=== PATIENT | female | born 1995 | race Caucasian/White ===

== ENCOUNTER 2017-04-12 15:38 | Emergency (ER) | payer BC, OTHER ==
[2017-04-12 16:23] LABS: Appearance,Urine Cloudy (Clear); Bacteria,Urine Rare /hpf; Bilirubin,Urine Negative (Negative); Blood,Urine Trace (Negative); Color,Urine Light Yellow; Glucose,Urine (UA) 4+ (Negative); Hyaline Casts,Urine 1 /lpf (0-2); Ketones,Urine Negative (Negative); Leukocyte Esterase,Urine Large (Negative); Mucus,Urine Rare /hpf; Nitrite,Urine Positive (Negative); PH, Urine 5.5 (5.0-8.0); Protein,Urine Negative (Negative); RBC,Urine 5 /hpf (0-5); Specific Gravity,Urine 1.024 (1.001-1.035); Squamous Epithelial Cell,Urine 2 /hpf (0-4); Urobilinogen,Urine <2.0 mg/dL (<2.0); WBC,Urine 95 /hpf (0-5)
[2017-04-12] MEDS ORDERED: cefTRIAXone 1,000 MG VIAL (IM USE) IM STA (16:31)
--- NOTE | 2017-04-12 16:38 | ED ---
General Adult HPI - General Chief complaint: Urogenital Stated complaint: poss UTI Time Seen by Provider: 04/12/17 16:22 Source: patient, RN notes reviewed Mode of arrival: ambulatory Limitations: no limitations - History of Present Illness Initial comments: Patient's a 21-year-old female who presents emergency room today with a chief complaint of possible urinary tract infection. She states that she's had some symptoms of dysuria. She admits to burning with urination. She states the symptoms started yesterday and has increased today. She denies any other complaints or associated symptoms. Denies any vaginal bleeding or discharge. She is not worried about any STDs. Patient denies any recent fever, chills, shortness of breath, chest pain, back pain, abdominal pain, nausea or vomiting, numbness or tingling, headaches or visual changes, or any other complaints. - Related Data Home Medications Medication Instructions Recorded Confirmed Insulin Aspart [NovoLOG Flexpen] 30 units SQ AC-TID 04/12/17 04/12/17 Insulin Glargine,Hum.rec.anlog 50 unit SQ BID 04/12/17 04/12/17 [Basaglar Kwikpen U-100] Lisinopril [Zestril] 2.5 mg PO DAILY 04/12/17 04/12/17 busPIRone HCl [Buspar] 5 mg PO BID 04/12/17 04/12/17 Previous Rx's Medication Instructions Recorded Nitrofurantoin Monohyd/M-Cryst 100 mg PO Q12HR #14 cap 04/12/17 [Macrobid] Phenazopyridine [Pyridium] 100 mg PO TID 3 Days day 04/12/17 Allergies Allergy/AdvReac Type Severity Reaction Status Date / Time fluoxetine [From Prozac] AdvReac Suicidal Verified 04/12/17 16:19 Thoughts Review of Systems ROS Statement: Those systems with pertinent positive or pertinent negative responses have been documented in the HPI. ROS Other: All systems not noted in ROS Statement are negative. Past Medical History Past Medical History: Diabetes Mellitus, Hearing Disorder / Deafness, Hypertension History of Any Multi-Drug Resistant Organisms: None Reported Past Surgical History: Ear Surgery Past Psychological History: Bipolar, Depression Smoking Status: Current every day smoker Past Alcohol Use History: None Reported Past Drug Use History: None Reported General Exam - General Exam Comments Initial Comments: General: The patient is awake and alert, in no distress, and does not appear acutely ill. Eye: Pupils are equal, round and reactive to light, extra-ocular movements are intact. No nystagmus. There is normal conjunctiva bilaterally. No signs of icterus. Ears, nose, mouth and throat: There are moist mucous membranes and no oral lesions. Neck: The neck is supple, there is no tenderness or JVD. Cardiovascular: There is a regular rate and rhythm. No murmur, rub or gallop is appreciated. Respiratory: Lungs are clear to auscultation, respirations are non-labored, breath sounds are equal. No wheezes, stridor, rales, or rhonchi. Gastrointestinal: Soft, non-distended, non-tender abdomen without masses or organomegaly noted. There is no rebound or guarding present. No CVA tenderness. Musculoskeletal: Normal ROM, no tenderness. Strength 5/5. Sensation intact. Pulses equal bilaterally 2+. Neurological: A&O x 3. CN II-XII intact, There are no obvious motor or sensory deficits. Coordination appears grossly intact. Speech is normal. Skin: Skin is warm and dry and no rashes or lesions are noted. Psychiatric: Cooperative, appropriate mood & affect, normal judgment. Limitations: no limitations Course Vital Signs 04/12/17 15:45 Temperature 98.2 F Pulse Rate 113 H Respiratory 16 Rate Blood Pressure 130/95 O2 Sat by Pulse 95 Oximetry Medical Decision Making - Medical Decision Making 21-year-old female presenting for urinary tract infection symptoms. Distant dysuria. Patient's vital stable. Patient no tenderness on exam. No fever here in the emergency room. Given shot of Rocephin. Will be discharged home on antibiotics and Pyridium for her symptoms. Advised follow-up the family doctor return if symptoms increase or worsen. - Lab Data Lab Results 04/12/17 04/12/17 Range/Units 15:40 15:40 Urine Color Light Yellow Urine Appearance Cloudy H (Clear) Urine pH 5.5 (5.0-8.0) Ur Specific [place] 1.024 (1.001-1.035) Urine Protein Negative (Negative) Urine Glucose (UA) 4+ H (Negative) Urine Ketones Negative (Negative) Urine Blood Trace H (Negative) Urine Nitrite Positive H (Negative) Urine Bilirubin Negative (Negative) Urine Urobilinogen <2.0 (<2.0) mg/dL Ur Leukocyte Esterase Large H (Negative) Urine RBC 5 (0-5) /hpf Urine WBC 95 H (0-5) /hpf Urine WBC Clumps Few H (None) /hpf Ur Squamous Epith Cells 2 (0-4) /hpf Urine Bacteria Rare H (None) /hpf Hyaline Casts 1 (0-2) /lpf Urine Mucus Rare H (None) /hpf Urine HCG, Qual Not Detected (Not Detectd) Disposition Clinical Impression: UTI (urinary tract infection) Disposition: HOME SELF-CARE Condition: Good Instructions: Urinary Tract Infection in Women (ED) Additional Instructions: Please use medication as discussed. Please follow-up with family doctor in the next 2 days of symptoms have not improved. Please return to emergency room if the symptoms increase or worsen or for any other concerns. Prescriptions: Nitrofurantoin Monohyd/M-Cryst [Macrobid] 100 mg PO Q12HR #14 cap Phenazopyridine [Pyridium] 100 mg PO TID 3 Days day Referrals: Angeles Aldana MD [Primary Care Provider] - 1-2 days Time of Disposition: 16:37
[2017-04-12 16:49] VITALS: BP 126/86; PULSE 101; RESP 18; TEMP 98.1
== END 2017-04-12 17:00 | disposition home or self-care (01) ==
LOC: EC 15:38
DX: N39.0 Urinary tract infection, site not specified (principal); E11.9 Type 2 diabetes mellitus without complications; I10 Essential (primary) hypertension; F17.200 Nicotine dependence, unspecified, uncomplicated; Z88.8 Allergy status to other drugs, medicaments and biological substances; Z79.4 Long term (current) use of insulin; Z79.899 Other long term (current) drug therapy
CPT/HCPCS: 99283; 96372; 81001; 81025; 87086; 87077; 87186; J0696

== ENCOUNTER 2021-07-22 07:48 | Observation (INO) | payer OTHER ==
[2021-07-22] MEDS ORDERED: ONDANSETRON 4 MG/2 ML VIAL IVP STA (08:22)
[2021-07-22] MEDS ORDERED: SODIUM CHLORIDE 0.9% 500 ML 500 ML IV ONE (08:22)
[2021-07-22] MEDS ORDERED: SODIUM CHLORIDE 0.9% 1,000 ML IV ONE (08:22)
--- NOTE | 2021-07-22 08:31 | ED ---
General Adult HPI - General Chief complaint: Recheck/Abnormal Lab/Rx Stated complaint: High Blood Sugar Time Seen by Provider: 07/22/21 08:00 Source: patient, RN notes reviewed, old records reviewed Mode of arrival: ambulatory Limitations: no limitations - History of Present Illness Initial comments: This 26-year-old female presents emergency Department stating her sugar was high yesterday and today patient states she didn't take any insulin today but she did drink a lot of water. Patient states she's been vomiting since yesterday. Patient denies any fever chills per patient denies any diarrhea. Patient states she does have some abdominal cramping occasionally. Patient denies chest pain difficulty breathing shortness of breath. Patient denies any palpitations. Patient denies any headache patient denies numbness weakness. - Related Data Home Medications Medication Instructions Recorded Confirmed Insulin Aspart Protam & Aspart See Protocol SQ ACHS 07/22/21 07/22/21 [NovoLOG MIX 70-30 Flexpen] Mirtazapine [Remeron] 15 mg PO HS 07/22/21 07/22/21 lamoTRIgine [LaMICtal] See Taper PO DIRECTED 07/22/21 07/22/21 Allergies Allergy/AdvReac Type Severity Reaction Status Date / Time sulfamethoxazole Allergy Rash/Hives Verified 07/22/21 08:31 [From Bactrim] trimethoprim [From Bactrim] Allergy Rash/Hives Verified 07/22/21 08:31 duloxetine [From Cymbalta] AdvReac Hallucinati Verified 07/22/21 08:31 ons fluoxetine [From Prozac] AdvReac Suicidal Verified 07/22/21 08:31 Thoughts sertraline [From Zoloft] AdvReac Hallucinati Verified 07/22/21 08:31 ons Review of Systems ROS Statement: Those systems with pertinent positive or pertinent negative responses have been documented in the HPI. ROS Other: All systems not noted in ROS Statement are negative. Past Medical History Past Medical History: Diabetes Mellitus, Hearing Disorder / Deafness, Hypertension History of Any Multi-Drug Resistant Organisms: None Reported Past Surgical History: Ear Surgery Past Psychological History: Anxiety, Bipolar, Depression Smoking Status: Current every day smoker Past Alcohol Use History: None Reported Past Drug Use History: Marijuana General Exam - General Exam Comments Initial Comments: GENERAL: Patient is well-developed and well-nourished. Patient is nontoxic and well- hydrated and is in mild distress. ENT: Neck is soft and supple. No significant lymphadenopathy is noted. Oropharynx is clear. Dry mucous membranes. Neck has full range of motion without eliciting any pain. EYES: The sclera were anicteric and conjunctiva were pink and moist. Extraocular movements were intact and pupils were equal round and reactive to light. Eyelids were unremarkable. PULMONARY: Unlabored respirations. Good breath sounds bilaterally. No audible rales rhonchi or wheezing was noted. CARDIOVASCULAR: There is a regular rate and rhythm without any murmurs gallops or rubs. ABDOMEN: Soft and nontender with normal bowel sounds. SKIN: Skin is clear with no lesions or rashes and otherwise unremarkable. NEUROLOGIC: Patient is alert and oriented x3. Cranial nerves II through XII are grossly intact. Motor and sensory are also intact. Normal speech, volume and content. Symmetrical smile. MUSCULOSKELETAL: Normal extremities with adequate strength and full range of motion. No lower extremity swelling or edema. No calf tenderness. LYMPHATICS: No significant lymphadenopathy is noted PSYCHIATRIC: Normal psychiatric evaluation. Limitations: no limitations Course Vital Signs 07/22/21 07:57 Temperature 98.1 F Pulse Rate 98 Respiratory 18 Rate Blood Pressure 158/106 O2 Sat by Pulse 97 Oximetry Medical Decision Making - Medical Decision Making EKG shows sinus rhythm 82 bpm [place] interval 164 QRS is 170 QT interval 41 QTC is 439. Patient's EKG shows no ST segment elevation or depression. Patient was started on insulin because her sugar was 678. I put her on insulin drip and gave her a bolus. I spoke with sounds physician's agreed to admit the patient admitted the patient wrote admitting orders. - Lab Data Result diagrams: 07/22/21 08:29 07/22/21 08:29 Lab Results 07/22/21 07/22/21 07/22/21 Range/Units 08:29 08:29 09:41 WBC 7.4 (3.8-10.6) k/uL RBC 4.84 (3.80-5.40) m/uL Hgb 14.1 (11.4-16.0) gm/dL Hct 44.6 (34.0-46.0) % MCV 92.1 (80.0-100.0) fL MCH 29.2 (25.0-35.0) pg MCHC 31.7 (31.0-37.0) g/dL RDW 13.2 (11.5-15.5) % Plt Count 296 (150-450) k/uL MPV 7.4 Neutrophils % 75 % Lymphocytes % 19 % Monocytes % 3 % Eosinophils % 1 % Basophils % 0 % Neutrophils # 5.5 (1.3-7.7) k/uL Lymphocytes # 1.4 (1.0-4.8) k/uL Monocytes # 0.2 (0-1.0) k/uL Eosinophils # 0.1 (0-0.7) k/uL Basophils # 0.0 (0-0.2) k/uL Sodium 130 L (137-145) mmol/L Potassium 5.0 (3.5-5.1) mmol/L Chloride 99 (98-107) mmol/L Carbon Dioxide 20 L (22-30) mmol/L Anion Gap 11 mmol/L BUN 20 H (7-17) mg/dL Creatinine 0.46 L (0.52-1.04) mg/dL Est GFR (CKD-EPI)AfAm >90 (>60 ml/min/1.73 sqM) Est GFR (CKD-EPI)NonAf >90 (>60 ml/min/1.73 sqM) Glucose 678 H* (74-99) mg/dL Calcium 8.4 (8.4-10.2) mg/dL Total Bilirubin 0.6 (0.2-1.3) mg/dL AST 37 H (14-36) U/L ALT 31 (4-34) U/L Alkaline Phosphatase 62 (38-126) U/L Total Protein 6.9 (6.3-8.2) g/dL Albumin 3.7 (3.5-5.0) g/dL Urine Color Light Yellow Urine Appearance Clear (Clear) Urine pH 6.5 (5.0-8.0) Ur Specific [place] 1.035 (1.001-1.035) Urine Protein Negative (Negative) Urine Glucose (UA) 4+ H (Negative) Urine Ketones Negative (Negative) Urine Blood Negative (Negative) Urine Nitrite Negative (Negative) Urine Bilirubin Negative (Negative) Urine Urobilinogen <2.0 (<2.0) mg/dL Ur Leukocyte Esterase Negative (Negative) Acetone, Qual Negative (Negative) Disposition Clinical Impression: Hyperglycemia Disposition: ADMITTED IP TO THIS HOSP Referrals: Michael Mejia MD [Primary Care Provider] - 1-2 days Time of Disposition: 10:15
[2021-07-22 08:51] LABS: Basophils % (A) 0 %; Eosinophils # (A) 0.1 k/uL (0-0.7); Eosinophils % (A) 1 %; HCT 44.6 % (34.0-46.0); HGB 14.1 gm/dL (11.4-16.0); Lymphocytes # (A) 1.4 k/uL (1.0-4.8); Lymphocytes % (A) 19 %; MCH 29.2 pg (25.0-35.0); MCHC 31.7 g/dL (31.0-37.0); MCV 92.1 fL (80.0-100.0); Mean Platelet Volume 7.4; Monocytes # (A) 0.2 k/uL (0-1.0); Monocytes % (A) 3 %; Neutrophils # (A) 5.5 k/uL (1.3-7.7); Neutrophils % (A) 75 %; Platelet Count 296 k/uL (150-450); RBC 4.84 m/uL (3.80-5.40); RDW 13.2 % (11.5-15.5); WBC 7.4 k/uL (3.8-10.6)
[2021-07-22 09:01] LABS: ALT 31 U/L (4-34); African American GFR (CKD) >90 (>60 ml/min/1.73 sqM); Albumin 3.7 g/dL (3.5-5.0); Anion Gap 11 mmol/L; Blood Urea Nitrogen 20 mg/dL (7-17); Calcium 8.4 mg/dL (8.4-10.2); Carbon Dioxide 20 mmol/L (22-30); Chloride 99 mmol/L (98-107); Non-African American GFR(CKD) >90 (>60 ml/min/1.73 sqM); Sodium 130 mmol/L (137-145); Total Bilirubin 0.6 mg/dL (0.2-1.3); Total Protein 6.9 g/dL (6.3-8.2)
[2021-07-22 09:17] LABS: Glucose 678 mg/dL (74-99)
[2021-07-22 09:18] LABS: AST 37 U/L (14-36); Alkaline Phosphatase 62 U/L (38-126)
[2021-07-22] MEDS ORDERED: INSULIN REGULAR BOLUS (FROM DRIP BAG) IV ONE (09:37)
[2021-07-22] MEDS ORDERED: INSULIN REGULAR 100 UNIT in SODIUM CHLORIDE 0.9% 100 ML IV SCH ×2 (09:45→13:30)
[2021-07-22] MEDS ORDERED: SODIUM CHLORIDE 0.9% 1,000 ML IV SCH (09:45)
[2021-07-22 10:07] LABS: Appearance,Urine Clear (Clear); Bilirubin,Urine Negative (Negative); Blood,Urine Negative (Negative); Color,Urine Light Yellow; Glucose,Urine (UA) 4+ (Negative); Ketones,Urine Negative (Negative); Leukocyte Esterase,Urine Negative (Negative); Nitrite,Urine Negative (Negative); PH, Urine 6.5 (5.0-8.0); Protein,Urine Negative (Negative); Specific Gravity,Urine 1.035 (1.001-1.035); Urobilinogen,Urine <2.0 mg/dL (<2.0)
[2021-07-22] MEDS ORDERED: ENALAPRILAT 1.25 MG/ML 1 ML VIAL IVP STA (11:43)
[2021-07-22 12:02] LABS: Glucose,Whole Blood 304 mg/dL (75-99)
[2021-07-22 13:18] LABS: Glucose,Whole Blood 166 mg/dL (75-99)
[2021-07-22] MEDS ORDERED: D5-0.45% NACL WITH KCL 20MEQ/L 1,000 ML IV SCH (13:30)
[2021-07-22 14:20] LABS: Glucose,Whole Blood 134 mg/dL (75-99)
[2021-07-22 16:05] VITALS: PULSE 80; TEMP 98
[2021-07-22 16:10] LABS: Glucose,Whole Blood 144 mg/dL (75-99)
--- NOTE | 2021-07-22 17:19 | P.HPIM ---
History of Present Illness H&P Date: 07/22/21 Chief Complaint: Vomiting This is a pleasant 26-year-old patient who follows with Dr. Michael Mejia. Patient was diagnosed with diabetes type 1 in 2012. Patient does use insulin 7030. Was previously on Lantus. Apparently for insurance reasons she was switched over. She has not been able to establish with public relations analyst because of an shortness. She also takes Remeron and Lamictal for depression PTSD and insomnia. She normally checks her blood sugar and gives her insulin accordingly. Yesterday. She is not not feeling well when she noticed her blood sugar to be 600. She did not of fluids. Not feeling well. No fever no chills. No urinary symptoms. This morning her Accu-Chek was 449. She started vomiting. Decided to come to the ER. Ketones were negative. Put on insulin drip. The supple patient actually had a chicken sandwich. Review of systems: GEN.: Tired EYES: None HEENT: None NECK: None RESPIRATORY: None CARDIOVASCULAR: None GASTROINTESTINAL: As above GENITOURINARY: None MUSCULOSKELETAL: None LYMPHATICS: None HEMATOLOGICAL: None PSYCHIATRY: None NEUROLOGICAL: None Past medical history to include: Insulin type I, hypertension, depression, PTSD, insomnia Social history: These with her roommate Samy. Works as a housekeeping at [employer]. Smokes half a pack a day. Does marijuana occasionally. No alcohol. Family history: Reviewed, noncontributory to presentation Physical examination: VITAL SIGNS: 98, 80, 18, 141/98, 99% room air GENERAL: BMI 32.4, laying in bed, awake, not in distress. EYES: Pupils equal. Conjunctiva normal. HEENT: External appearance of nose and ears normal, oral cavity grossly normal. NECK: JVD not raised; masses not palpable. HEART: First and second heart sounds are normal; no edema. LUNGS: Respiratory rate normal; clear to auscultation. ABDOMEN: Soft, nontender, liver spleen not palpable, no masses palpable. PSYCH: Alert and oriented x3; mood and affect normal. MUSCULOSKELETAL:No Clubbing/cyanosis;muscles-grossly intact NEUROLOGICAL: Cranial nerves grossly intact; no facial asymmetry, power and sensation grossly intact. LYMPHATICS: No lymph nodes palpable in the axilla and neck INVESTIGATIONS, reviewed in the clinical context: White count 7.4 hemoglobin 14.1 platelets 296 sodium 1:30 potassium 5. 20 creatinine 0.46 blood glucose 678 Serum acetone negative UA: Glucose 4+ EKG tracing personally reviewed by me-normal sinus rhythm Assessment and plan: -Diabetes mellitus type 1, uncontrolled with hyperglycemia. Negative blood ketones IV fluids. Insulin drip. -Obesity BMI 32.4 Weight loss measures -Chronic nicotine dependence, cigarette smoker Nicotine patch. -Nausea vomiting secondary to uncontrolled diabetes. -Depression and anxiety Lamictal Remeron -Chronic insomnia Remeron 15 mg daily at bedtime -Essential hypertension Zestril 5 mg daily at bedtime Insulin drip. IV fluids. Subcu Lovenox. Nicotine patch. Resume home medications. Diabetic diet as tolerated. Smoke cessation counseling: This was done with the patient. Nicotine patch is being given. More than 3 minutes was spent for this Past Medical History Past Medical History: Diabetes Mellitus, Hearing Disorder / Deafness, Hyperte nsion History of Any Multi-Drug Resistant Organisms: None Reported Past Surgical History: Ear Surgery Past Psychological History: Anxiety, Bipolar, Depression Smoking Status: Current every day smoker Past Alcohol Use History: None Reported Past Drug Use History: Marijuana Medications and Allergies Home Medications Medication Instructions Recorded Confirmed Type Insulin Aspart Protam & Aspart See Protocol SQ ACHS 07/22/21 07/22/21 History [NovoLOG MIX 70-30 Flexpen] Metoprolol Succinate (ER) [Toprol 50 mg PO HS 07/22/21 07/22/21 History Xl] Mirtazapine [Remeron] 15 mg PO HS 07/22/21 07/22/21 History lamoTRIgine [LaMICtal] See Taper PO DIRECTED 07/22/21 07/22/21 History lisinopriL [Zestril] 5 mg PO HS 07/22/21 07/22/21 History Allergies Allergy/AdvReac Type Severity Reaction Status Date / Time sulfamethoxazole Allergy Rash/Hives Verified 07/22/21 08:31 [From Bactrim] trimethoprim [From Bactrim] Allergy Rash/Hives Verified 07/22/21 08:31 duloxetine [From Cymbalta] AdvReac Hallucinati Verified 07/22/21 08:31 ons fluoxetine [From Prozac] AdvReac Suicidal Verified 07/22/21 08:31 Thoughts sertraline [From Zoloft] AdvReac Hallucinati Verified 07/22/21 08:31 ons Physical Exam Vitals: Vital Signs Temp Pulse Resp BP Pulse Ox 07/22/21 16:03 98.0 F 80 18 141/98 99 07/22/21 14:03 126/88 07/22/21 11:59 139/97 07/22/21 11:39 153/108 07/22/21 07:57 98.1 F 98 18 158/106 97 Intake and Output 07/22/21 07/22/21 07/22/21 06:59 14:59 22:59 Intake Total 2.417 1.817 Balance 2.417 1.817 Intake: Intake, IV Titration 2.417 1.817 Amount Insulin Regular 100 unit 2.417 1.817 In Sodium Chloride 0.9% 100 ml @ Titrate IV .Q0M [facility] Rx#:[id number] Other: Weight 80.286 kg Results CBC & Chem 7: 07/22/21 08:29 07/22/21 08:29 Labs: Abnormal Lab Results - Last 24 Hours (Table) 07/22/21 07/22/21 07/22/21 Range/Units 08:29 09:41 11:53 Sodium 130 L (137-145) mmol/L Carbon Dioxide 20 L (22-30) mmol/L BUN 20 H (7-17) mg/dL Creatinine 0.46 L (0.52-1.04) mg/dL Glucose 678 H* (74-99) mg/dL POC Glucose (mg/dL) 304 H (75-99) mg/dL AST 37 H (14-36) U/L Urine Glucose (UA) 4+ H (Negative) 07/22/21 07/22/21 07/22/21 Range/Units 13:15 14:16 16:06 Sodium (137-145) mmol/L Carbon Dioxide (22-30) mmol/L BUN (7-17) mg/dL Creatinine (0.52-1.04) mg/dL Glucose (74-99) mg/dL POC Glucose (mg/dL) 166 H 134 H 144 H (75-99) mg/dL AST (14-36) U/L Urine Glucose (UA) (Negative)
[2021-07-22] MEDS ORDERED: NALOXONE 0.4 MG/ML 1 ML VIAL IV PRN (17:20)
[2021-07-22] MEDS ORDERED: ACETAMINOPHEN TAB 325 MG TAB PO PRN (17:20)
[2021-07-22] MEDS ORDERED: LACTULOSE 20 GM/30 ML CUP PO PRN (17:20)
[2021-07-22] MEDS ORDERED: CALCIUM CARBONATE 500 MG CHEWABLE PO PRN (17:20)
[2021-07-22] MEDS ORDERED: LORazepam 0.5 MG TAB PO PRN (17:20)
[2021-07-22] MEDS ORDERED: INSULN ASP PRT/INSULIN ASPART 100 UNIT/ML 10 ML VIAL SQ SCH (17:30)
[2021-07-22] MEDS ORDERED: ENOXAPARIN 40 MG/0.4 ML SYRINGE SQ SCH (17:30)
[2021-07-22 18:50] LABS: Glucose,Whole Blood 351 mg/dL (75-99)
[2021-07-22 19:03] VITALS: BP 170/101; RESP 20
--- NOTE | 2021-07-22 20:50 | P.DS ---
Providers Date of admission: 07/22/21 10:38 Expected date of discharge: 07/22/21 Attending physician: Ken Ty Primary care physician: Michael [facility] Course: Chief Complaint: Vomiting This is a pleasant 26-year-old patient who follows with Dr. Michael Mejia. Patient was diagnosed with diabetes type 1 in 2012. Patient does use insulin 7030. Was previously on Lantus. Apparently for insurance reasons she was switched over. She has not been able to establish with instrument and controls technician because of an shortness. She also takes Remeron and Lamictal for depression PTSD and insomnia. She normally checks her blood sugar and gives her insulin accordingly. Yesterday. She is not not feeling well when she noticed her blood sugar to be 600. She did not of fluids. Not feeling well. No fever no chills. No urinary symptoms. This morning her Accu-Chek was 449. She started vomiting. Decided to come to the ER. Ketones were negative. Put on insulin drip. For lunch patient actually had a chicken sandwich. Data this evening patient received 20 units of Novolin 70/30 with supper. After that her sugar go to 320. Patient did not want to stay back. Leaving AMA. She was told to take Novolin 70/30 25 units with breakfast and supper and 12 units with lunch. Follow up with her PCP. Patient left AMA Past medical history to include: Insulin type I, hypertension, depression, PTSD, insomnia Social history: These with her roommate Samy. 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 Does marijuana occasionally. No alcohol. Family history: Reviewed, noncontributory to presentation Physical examination: VITAL SIGNS: 98, 80, 20, 140/98, 99% room air GENERAL: laying in bed, awake, not in distress. EYES: Pupils equal. Conjunctiva normal. HEENT: External appearance of nose and ears normal, oral cavity grossly normal. NECK: JVD not raised; masses not palpable. HEART: First and second heart sounds are normal; no edema. LUNGS: Respiratory rate normal; clear to auscultation. ABDOMEN: Soft, nontender, liver spleen not palpable, no masses palpable. PSYCH: Alert and oriented x3; mood and affect normal. MUSCULOSKELETAL:No Clubbing/cyanosis;muscles-grossly intact INVESTIGATIONS, reviewed in the clinical context: White count 7.4 hemoglobin 14.1 platelets 296 sodium 1:30 potassium 5. 20 creatinine 0.46 blood glucose 678 Serum acetone negative UA: Glucose 4+ EKG tracing personally reviewed by me-normal sinus rhythm Assessment and plan: -Diabetes mellitus type 1, uncontrolled with hyperglycemia. Negative blood ketones IV fluids. Insulin drip. Patient told to take Novolin 70/30 25 units twice a day and 12 units with lunch until follow-up with PCP -Obesity BMI 32.4 Weight loss measures -Chronic nicotine dependence, cigarette smoker Nicotine patch. -Nausea vomiting secondary to uncontrolled diabetes.: Resolved -Depression and anxiety Lamictal Remeron -Chronic insomnia Remeron 15 mg daily at bedtime -Essential hypertension Zestril 5 mg daily at bedtime Disposition: AMA Plan - Discharge Summary New Discharge Prescriptions: No Action lamoTRIgine [LaMICtal] See Taper PO DIRECTED Metoprolol Succinate (ER) [Toprol Xl] 50 mg PO HS Mirtazapine [Remeron] 15 mg PO HS Insulin Aspart Protam & Aspart [NovoLOG MIX 70-30 Flexpen] See Protocol SQ ACHS lisinopriL [Zestril] 5 mg PO HS Discharge Medication List Insulin Aspart Protam & Aspart [NovoLOG MIX 70-30 Flexpen] See Protocol SQ ACHS 07/22/21 [History] Metoprolol Succinate (ER) [Toprol Xl] 50 mg PO HS 07/22/21 [History] Mirtazapine [Remeron] 15 mg PO HS 07/22/21 [History] lamoTRIgine [LaMICtal] See Taper PO DIRECTED 07/22/21 [History] lisinopriL [Zestril] 5 mg PO HS 07/22/21 [History] Follow up Appointment(s)/Referral(s): Michael Mejia MD [Primary Care Provider] - 1-2 days Discharge Disposition: Left Against Medical Advice
[2021-07-22] MEDS ORDERED: METOPROLOL SUCCINATE (ER) 50 MG TAB.ER.24H PO SCH (21:00)
[2021-07-22] MEDS ORDERED: MIRTAZAPINE 15 MG TAB PO SCH (21:00)
[2021-07-22] MEDS ORDERED: lisinopriL 5 MG TAB PO SCH (21:00)
[2021-07-23] MEDS ORDERED: INSULN ASP PRT/INSULIN ASPART 100 UNIT/ML 10 ML VIAL SQ SCH (12:30)
== END 2021-07-22 19:05 | disposition left against medical advice (07) ==
LOC: EC 07:48 → INTOOBSV 10:38 → 6NMEDSUR 10:38 → OBSVTOIN 10:38 → 3SCARD 11:18 → UNDODISIN 19:05
PROVIDERS: ADMIT Hospitalist; ATTEND Hospitalist
DX: E10.65 Type 1 diabetes mellitus with hyperglycemia (principal); E66.9 Obesity, unspecified; Z68.32 Body mass index [BMI] 32.0-32.9, adult; F17.210 Nicotine dependence, cigarettes, uncomplicated; F31.9 Bipolar disorder, unspecified; F43.10 Post-traumatic stress disorder, unspecified; F41.9 Anxiety disorder, unspecified; I10 Essential (primary) hypertension; F51.04 Psychophysiologic insomnia; H91.90 Unspecified hearing loss, unspecified ear; Z79.4 Long term (current) use of insulin; Z79.899 Other long term (current) drug therapy; Z88.2 Allergy status to sulfonamides; Z88.8 Allergy status to other drugs, medicaments and biological substances; Z71.3 Dietary counseling and surveillance; Z71.6 Tobacco abuse counseling; Z53.29 Procedure and treatment not carried out because of patient's decision for other reasons
CPT/HCPCS: 96361; 96374; 99285; 36415; 93005; 80053; 82009; 85025; 81003; G0378; J2405

== ENCOUNTER 2021-11-21 08:22 | Emergency (ER) | payer OTHER ==
[2021-11-21 08:32] VITALS: TEMP 97.8
[2021-11-21] MEDS ORDERED: KETOROLAC 15 MG/ML 1 ML VIAL IVP STA (08:50)
--- NOTE | 2021-11-21 08:59 | ED ---
Chest Pain HPI - General Chief Complaint: Chest Pain Stated Complaint: chest & pelvic pain Time Seen by Provider: 11/21/21 08:32 Source: patient, RN notes reviewed Mode of arrival: ambulatory Limitations: no limitations - History of Present Illness Initial Comments: This is a 26-year-old female who presents to the emergency department with chest pain. States that for the last 2-3 months, she has had sporadic episodes, approximately 4 each week, where she gets sharp chest pain that radiates throughout her whole body. States that today, the chest pain caused her to fall onto the floor and she was unable to get up. States that this is the first time it has become this severe. States that she had difficulty breathing this morning as well. Additionally, she reports a migraine that has not improved with a dose of Fioricet. Denies any fevers, chills, sore throat, cough, palpitations, abdominal pain, nausea, vomiting, diarrhea, or back pain. MD Complaint: chest pain Onset: during rest Pain Location: left chest Quality: sharp Treatments Prior to Arrival: none - Related Data Home Medications Medication Instructions Recorded Confirmed Insulin Aspart Prot/Insuln Asp See Protocol SQ ACHS 07/22/21 07/22/21 [NovoLOG MIX 70-30 Flexpen] Metoprolol Succinate (ER) [Toprol 50 mg PO HS 07/22/21 07/22/21 Xl] Mirtazapine [Remeron] 15 mg PO HS 07/22/21 07/22/21 lamoTRIgine [LaMICtal] See Taper PO DIRECTED 07/22/21 07/22/21 lisinopriL [Zestril] 5 mg PO HS 07/22/21 07/22/21 Allergies Allergy/AdvReac Type Severity Reaction Status Date / Time sulfamethoxazole Allergy Rash/Hives Verified 11/21/21 08:32 [From Bactrim] trimethoprim [From Bactrim] Allergy Rash/Hives Verified 11/21/21 08:32 duloxetine [From Cymbalta] AdvReac Hallucinati Verified 11/21/21 08:32 ons fluoxetine [From Prozac] AdvReac Suicidal Verified 11/21/21 08:32 Thoughts sertraline [From Zoloft] AdvReac Hallucinati Verified 11/21/21 08:32 ons Review of Systems ROS Statement: Those systems with pertinent positive or pertinent negative responses have been documented in the HPI. ROS Other: All systems not noted in ROS Statement are negative. EKG Findings - EKG Comments: EKG Findings:: Sinus rhythm. Ventricular rate 97 bpm, MT interval 161 ms, QRS duration 98 ms, QTC 424 ms. Past Medical History Past Medical History: Diabetes Mellitus, Hearing Disorder / Deafness, Hypertension History of Any Multi-Drug Resistant Organisms: None Reported Past Surgical History: Ear Surgery Past Psychological History: Anxiety, Bipolar, Depression Smoking Status: Current every day smoker Past Alcohol Use History: None Reported Past Drug Use History: Marijuana General Exam Limitations: no limitations General appearance: alert, in no apparent distress Head exam: Present: atraumatic, normocephalic, normal inspection Neck exam: Present: normal inspection. Absent: tenderness, meningismus, lymphadenopathy Respiratory exam: Present: normal lung sounds bilaterally. Absent: respiratory distress, wheezes, rales, rhonchi, stridor Cardiovascular Exam: Present: regular rate, normal rhythm, normal heart sounds. Absent: systolic murmur, diastolic murmur, rubs, gallop, clicks Neurological exam: Present: alert, oriented X3, CN II-XII intact Psychiatric exam: Present: normal affect, normal mood Skin exam: Present: warm, dry, intact, normal color. Absent: rash Course Vital Signs 11/21/21 11/21/21 11/21/21 08:29 10:35 11:26 Temperature 97.8 F Pulse Rate 107 H 86 89 Respiratory 16 16 17 Rate Blood Pressure 132/84 133/95 126/94 O2 Sat by Pulse 98 100 98 Oximetry Chest Pain MDM - MDM This is a 26-year-old female who presents to the emergency department with chest pain. Chest x-ray obtained revealing no acute cardiopulmonary process. Lab work was nonactionable. Urinalysis consistent with contamination. Ultrasound of the gallbladder was obtained as well as amylase/lipase, as cholecystitis and pancreatitis can mimic chest pain. Ultrasound of the gallbladder revealed no acute irregularities. Amylase and lipase were also nonactionable. At this time, there is no clear cause for the patient's chest pain. There are no signs of any acute processes actively occurring. Information for cardiology follow-up provided to the patient. Advised she contact them for an appointment to discuss further testing. Return precautions reviewed in depth, the patient is instructed to return to the emergency department with any new, worsening, or concerning symptoms. Patient verbalized understanding. This case was discussed in detail with the attending ED physician. Presentation, findings, and treatment plan discussed in detail as well. - Wells Criteria Clinical Symptoms of DVT: (0) No No Alternative Diagnosis: (0) No Immobilization of Surgery in Previous 4 Weeks: (0) No Previous DVT/PE: (0) No Hemoptysis: (0) No Malignancy: (0) No Disposition Clinical Impression: Atypical chest pain Disposition: HOME SELF-CARE Instructions (If sedation given, give patient instructions): Noncardiac Chest Pain (ED) Additional Instructions: Return to the emergency department with any new, worsening, or concerning symptoms. Contact cardiology as listed below for a follow up appointment to discuss additional testing. Take Ibuprofen and Tylenol as needed for any additional episodes of chest pain. Follow up with your primary care provider in 1-2 days. Is patient prescribed a controlled substance at d/c from ED?: No Referrals: Chuck Dotson MD [Primary Care Provider] - 1-2 days Jarvis Haynes MD [STAFF PHYSICIAN] - 1-2 days
[2021-11-21] MEDS ORDERED: DEXAMETHASONE SOD PHOSPHATE 10 MG/ML 1 ML VIAL IVP SCH (09:00)
[2021-11-21 09:10] LABS: Basophils % (A) 0 %; Eosinophils # (A) 0.1 k/uL (0-0.7); Eosinophils % (A) 3 %; HCT 40.3 % (34.0-46.0); HGB 14.1 gm/dL (11.4-16.0); Lymphocytes # (A) 1.8 k/uL (1.0-4.8); Lymphocytes % (A) 41 %; MCH 30.2 pg (25.0-35.0); MCHC 34.9 g/dL (31.0-37.0); MCV 86.6 fL (80.0-100.0); Monocytes # (A) 0.3 k/uL (0-1.0); Monocytes % (A) 6 %; Neutrophils % (A) 47 %; Platelet Count 304 k/uL (150-450); RBC 4.66 m/uL (3.80-5.40); RDW 13.8 % (11.5-15.5); WBC 4.3 k/uL (3.8-10.6)
--- NOTE | 2021-11-21 09:15 | XR ---
EXAMINATION TYPE: XR chest 2V DATE OF EXAM: 11/21/2021 9:11 AM COMPARISON: None TECHNIQUE: XR chest 2V Frontal and lateral views of the chest. CLINICAL INDICATION:Female, 26 years old with history of Chest pain; FINDINGS: Lungs/Pleura: There is no evidence of pleural effusion, focal consolidation, or pneumothorax. Pulmonary vascularity: Unremarkable. Heart/mediastinum: Cardiomediastinal silhouette is unremarkable. Musculoskeletal: No acute osseous pathology. IMPRESSION: No acute cardiopulmonary disease/process.
[2021-11-21 09:27] LABS: ALT 28 U/L (4-34); AST 32 U/L (14-36); African American GFR (CKD) >90 (>60 ml/min/1.73 sqM); Albumin 3.8 g/dL (3.5-5.0); Alkaline Phosphatase 60 U/L (38-126); Anion Gap 8 mmol/L; Blood Urea Nitrogen 11 mg/dL (7-17); Calcium 8.4 mg/dL (8.4-10.2); Carbon Dioxide 24 mmol/L (22-30); Chloride 105 mmol/L (98-107); Glucose 137 mg/dL (74-99); INR 0.9 (<1.2); Magnesium 1.7 mg/dL (1.6-2.3); Non-African American GFR(CKD) >90 (>60 ml/min/1.73 sqM); Partial Thromboplastin Time 22.1 sec (22.0-30.0); Potassium 4.1 mmol/L (3.5-5.1); Prothrombin Time 10.1 sec (9.0-12.0); Sodium 137 mmol/L (137-145); Total Bilirubin 0.4 mg/dL (0.2-1.3); Total Protein 6.6 g/dL (6.3-8.2)
[2021-11-21 09:37] LABS: Appearance,Urine Cloudy (Clear); Bacteria,Urine Moderate /hpf; Bilirubin,Urine Negative (Negative); Blood,Urine Negative (Negative); Color,Urine Yellow; Glucose,Urine (UA) 3+ (Negative); Ketones,Urine Negative (Negative); Leukocyte Esterase,Urine Large (Negative); Mucus,Urine Many /hpf; Nitrite,Urine Negative (Negative); PH, Urine 6.5 (5.0-8.0); Protein,Urine 1+ (Negative); RBC,Urine 4 /hpf (0-5); Specific Gravity,Urine 1.025 (1.001-1.035); Squamous Epithelial Cell,Urine 22 /hpf (0-4); WBC,Urine 30 /hpf (0-5)
--- NOTE | 2021-11-21 10:44 | US ---
EXAMINATION TYPE: US gallbladder DATE OF EXAM: 11/21/2021 COMPARISON: NONE CLINICAL HISTORY: epigastric pain. TECHNIQUE: Multiple sonographic images of the right upper quadrant are obtained. FINDINGS: EXAM MEASUREMENTS: Liver Length: 12.2 cm Gallbladder Wall: 0.3 cm CBD: 0.5 cm Right Kidney: 10.0 x 4.4 x 4.4 cm SUPERVISOR FELLING BUCKING NOTES: Pancreas: visualized portions wnl Liver: difficult to penetrate. No intrahepatic biliary dilatation or suspicious mass within limitati on of the exam. Gallbladder: No stones seen. No wall thickening or pericholecystic fluid. Evidence for sonographic Severino's sign: No CBD: wnl Right Kidney: prominent tissue upper pole probably represents column of Rivera. No hydronephrosis or shadowing calculi. IMPRESSION: No acute process.
[2021-11-21 11:01] LABS: Amylase 44 U/L (30-110); Lipase 67 U/L (23-300)
[2021-11-21 11:27] VITALS: BP 126/94; PULSE 89; RESP 17
== END 2021-11-21 11:27 | disposition home or self-care (01) ==
LOC: EC 08:22
DX: R07.89 Other chest pain (principal); R10.2 Pelvic and perineal pain; E11.9 Type 2 diabetes mellitus without complications; H91.90 Unspecified hearing loss, unspecified ear; I10 Essential (primary) hypertension; F17.200 Nicotine dependence, unspecified, uncomplicated; Z88.2 Allergy status to sulfonamides; Z88.8 Allergy status to other drugs, medicaments and biological substances; Z79.4 Long term (current) use of insulin; Z79.899 Other long term (current) drug therapy
CPT/HCPCS: 36415; 93005; 83880; 80053; 82150; 83690; 83735; 84484; 85025; 85610; 85730; 81001; 81025; 87086; 71046; 76705; 99285; 96374; 96375; J1100; J1885

== ENCOUNTER → 2021-12-07 | Outpatient (CLI) | payer OTHER ==
--- NOTE | 2021-12-07 15:59 | CT ---
EXAMINATION TYPE: CT brain wo con DATE OF EXAM: 12/07/2021 COMPARISON: INDICATION: Migraines with syncope and spotty vision [id number]. No injury DLP: 1222 mGycm, Automated exposure control for dose reduction was used. CONTRAST: None CT of the brain is performed utilizing 3 mm thick sections through the posterior fossa and 3 mm thick sections through the remaining calvarium. Study is performed within 24 hours of arrival to the hosp [facility]. No abnormal hyperdensity is present to suggest an acute intracranial hemorrhage. No mass lesion is evident. No acute infarcts are evident. Ventricles and sulci are appropriate for the patient age. Paranasal sinuses and mastoid air cells within the [id number] are clear. IMPRESSIONS: 1. No acute intracranial process. Follow-up MRI can be performed as clinically indicated.
== END | disposition home or self-care (01) ==
LOC: RADCTMAIN 15:24
PROVIDERS: ATTEND Family Medicine
DX: G43.909 Migraine, unspecified, not intractable, without status migrainosus (principal)
CPT/HCPCS: 70450

== ENCOUNTER → 2021-12-09 | Outpatient (CLI) | payer OTHER ==
--- NOTE | 2021-12-09 13:10 | CA ---
Exercise Stress Test Report Name: Estrella Levy Exam Date: 12/09/2021 11:12 Exam Location: [facility] Stress Ht (in): 62 Wt (lb): 203 BSA: 1.92 Ordering Phys: Chuck Dotson MD Referring Phys: VERONICA, Technologist: Aaron Malik Age: 26 Gender: F : 1995 Procedure CPT: Indications: R07.9 CHEST PAIN ICD-10 Codes: Patient History: Medications: LAMITOL Meds past 24 hrs: Pretest Chest Pain: STRESS TEST Naga Protocol Exercise Duration (min:sec): 06:[address] Depressions (mm): Angina Score: Loza Score: Resting HR (bpm): 102 Peak HR (bpm): 146 Resting BP (mmHg): 136 / 82 Peak BP (mmHg): 179 / 89 MPHR: 195 Target HR: 166 % MPHR: 75 METS: 7.1 Total Dose: Peak Dose: Atropine: Double Product: 22723 BP Response: Stress Termination: DYSPNEA UNABLE TO CONTINUE Stress Symptoms: NO SYMPTOMS Stress Summary: ECG ANALYSIS Resting ECG: Normal sinus rhythm normal axis normal intervals Stress ECG: Patient exercised on Naga protocol for a total of 6 minutes achieving 7 metastases 75% of predicted maximal heart rate without chest pain at peak exercise she was short of breath and the test had to be stopped she only attain 75% of predicted maximal heart rate CONCLUSIONS Poor exercise tolerance Inconclusive EKG part of the stress test due to inability to attain target heart rate Dr. Flavio Glynn MD (Electronically Signed) Final Date: 09 December 2021 13:09
== END | disposition home or self-care (01) ==
LOC: RADNMMAIN 10:44
PROVIDERS: ATTEND Family Medicine
DX: R07.9 Chest pain, unspecified (principal)
CPT/HCPCS: 93017

== ENCOUNTER → 2021-12-30 | Outpatient (CLI) | payer OTHER ==
--- NOTE | 2021-12-30 14:59 | US ---
EXAMINATION TYPE: US abdomen complete DATE OF EXAM: 12/30/2021 COMPARISON: 11/21/2021 CLINICAL HISTORY: R10.84 Abdominal pain, R11.10 Vomiting,. abd pain, diabetic TECHNIQUE: Multiple sonographic images of the abdomen are obtained. FINDINGS: EXAM MEASUREMENTS: Liver Length: 18.3 cm Gallbladder Wall: 0.2 cm CBD: 0.5 cm Spleen: 11.1 cm Right Kidney: 10.2 x 4.0 x 4.3 cm Left Kidney: 12.2 x 4.7 x 5.9 cm DIRECTOR OF FIELD COORDINATION NOTES: bowel gas and large habitus limits exam Pancreas: not seen due to gas Liver: difficult to penetrate Gallbladder: wnl Evidence for sonographic Severino's sign: no CBD: wnl Spleen: wnl Right Kidney: wnl Left Kidney: wnl Upper IVC: wnl Abd Aorta: wnl IMPRESSION: 1. Hepatomegaly 2. Visualized abdomen ultrasound is unremarkable. There is some limitation due to bowel gas and body habitus.
== END | disposition home or self-care (01) ==
LOC: RADUSWWP 12:19
PROVIDERS: ATTEND Family Medicine
DX: R16.0 Hepatomegaly, not elsewhere classified (principal)
CPT/HCPCS: 76700

== ENCOUNTER 2022-01-05 05:59 | Emergency (ER) | payer OTHER ==
[2022-01-05 06:17] LABS: Glucose,Whole Blood 210 mg/dL (70-110)
[2022-01-05] MEDS ORDERED: ONDANSETRON 4 MG/2 ML VIAL IVP STA (06:28)
[2022-01-05] MEDS ORDERED: SODIUM CHLORIDE 0.9% 2,000 ML IV STA (06:28)
--- NOTE | 2022-01-05 06:42 | ED ---
Abdominal Pain HPI - General Chief Complaint: Abdominal Pain Stated Complaint: Hyperglycemia Time Seen by Provider: 01/05/22 06:01 Source: patient, EMS, RN notes reviewed Mode of arrival: EMS Limitations: no limitations - History of Present Illness Initial Comments: This a 26-year-old female presents emergency from chief complaint of nausea vomiting hyperglycemia. Patient states that she's been vomiting throughout the night. Patient states that she was recently treated for H. pylori states that she completed the whole course of treatment. Patient states that she is feeling fine up until the last day or so. Patient states she feels dehydrated. Patient does have an insulin pump which is removed. Patient states that she didn't bolus herself insulin last night. Denies any localized abdominal pain denies any chest pain no cough or cold like symptoms denies any headache or dizziness. - Related Data Home Medications Medication Instructions Recorded Confirmed Insulin Aspart Prot/Insuln Asp See Protocol SQ ACHS 07/22/21 07/22/21 [NovoLOG MIX 70-30 Flexpen] Metoprolol Succinate (ER) [Toprol 50 mg PO HS 07/22/21 07/22/21 Xl] Mirtazapine [Remeron] 15 mg PO HS 07/22/21 07/22/21 lamoTRIgine [LaMICtal] See Taper PO DIRECTED 07/22/21 07/22/21 lisinopriL [Zestril] 5 mg PO HS 07/22/21 07/22/21 Previous Rx's Medication Instructions Recorded Ondansetron Odt [Zofran Odt] 4 mg PO Q8HR PRN #10 tab 01/05/22 Allergies Allergy/AdvReac Type Severity Reaction Status Date / Time sulfamethoxazole Allergy Rash/Hives Verified 11/21/21 08:32 [From Bactrim] trimethoprim [From Bactrim] Allergy Rash/Hives Verified 11/21/21 08:32 duloxetine [From Cymbalta] AdvReac Hallucinati Verified 11/21/21 08:32 ons fluoxetine [From Prozac] AdvReac Suicidal Verified 11/21/21 08:32 Thoughts sertraline [From Zoloft] AdvReac Hallucinati Verified 11/21/21 08:32 ons Review of Systems ROS Statement: Those systems with pertinent positive or pertinent negative responses have been documented in the HPI. ROS Other: All systems not noted in ROS Statement are negative. Past Medical History Past Medical History: Diabetes Mellitus, Hearing Disorder / Deafness, Hypertension History of Any Multi-Drug Resistant Organisms: None Reported Past Surgical History: Ear Surgery Past Psychological History: Anxiety, Bipolar, Depression Smoking Status: Current every day smoker Past Alcohol Use History: None Reported Past Drug Use History: Marijuana General Exam Limitations: no limitations General appearance: alert, in no apparent distress Head exam: Present: atraumatic, normocephalic, normal inspection Eye exam: Present: normal appearance, PERRL, EOMI. Absent: scleral icterus, conjunctival injection, periorbital swelling ENT exam: Present: normal exam, mucous membranes moist Neck exam: Present: normal inspection, full ROM. Absent: tenderness, meningismus, lymphadenopathy Respiratory exam: Present: normal lung sounds bilaterally. Absent: respiratory distress, wheezes, rales, rhonchi, stridor Cardiovascular Exam: Present: regular rate, normal rhythm, normal heart sounds. Absent: systolic murmur, diastolic murmur, rubs, gallop, clicks GI/Abdominal exam: Present: soft, normal bowel sounds. Absent: distended, tenderness, guarding, rebound, rigid Back exam: Absent: CVA tenderness (R), CVA tenderness (L) Neurological exam: Present: alert, oriented X3 Skin exam: Present: warm Course Vital Signs 01/05/22 06:07 Temperature 98.4 F Pulse Rate 102 H Respiratory 16 Rate Blood Pressure 135/93 O2 Sat by Pulse 98 Oximetry Medical Decision Making - Medical Decision Making 26-year-old presented for nausea vomiting hyperglycemia. Patient was well hydrated given antiemetics symptoms have improved blood sugars improved to 123. Patient states that she does not have any urinary symptoms return to be cultured. Return parameters were discussed. - Lab Data Result diagrams: 01/05/22 06:06 01/05/22 06:06 Lab Results 01/05/22 01/05/22 01/05/22 Range/Units 06:06 06:06 06:06 WBC 5.8 (3.8-10.6) k/uL RBC 5.03 (3.80-5.40) m/uL Hgb 14.4 (11.4-16.0) gm/dL Hct 42.8 (34.0-46.0) % MCV 85.1 (80.0-100.0) fL MCH 28.6 (25.0-35.0) pg MCHC 33.6 (31.0-37.0) g/dL RDW 12.8 (11.5-15.5) % Plt Count 309 (150-450) k/uL MPV 7.7 Neutrophils % 53 % Lymphocytes % 33 % Monocytes % 5 % Eosinophils % 7 % Basophils % 1 % Neutrophils # 3.1 (1.3-7.7) k/uL Lymphocytes # 1.9 (1.0-4.8) k/uL Monocytes # 0.3 (0-1.0) k/uL Eosinophils # 0.4 (0-0.7) k/uL Basophils # 0.0 (0-0.2) k/uL Sodium 138 (137-145) mmol/L Potassium 4.6 (3.5-5.1) mmol/L Chloride 104 (98-107) mmol/L Carbon Dioxide 21 L (22-30) mmol/L Anion Gap 13 mmol/L BUN 17 (7-17) mg/dL Creatinine 0.56 (0.52-1.04) mg/dL Est GFR (CKD-EPI)AfAm >90 (>60 ml/min/1.73 sqM) Est GFR (CKD-EPI)NonAf >90 (>60 ml/min/1.73 sqM) Glucose 299 H (74-99) mg/dL POC Glucose (mg/dL) (70-110) mg/dL POC Glu Window Trimmer ID Plasma Lactic Acid Olu 3.0 H* (0.7-2.0) mmol/L Calcium 9.3 (8.4-10.2) mg/dL Total Bilirubin 0.8 (0.2-1.3) mg/dL AST 40 H (14-36) U/L ALT 27 (4-34) U/L Alkaline Phosphatase 55 (38-126) U/L Total Protein 7.1 (6.3-8.2) g/dL Albumin 4.2 (3.5-5.0) g/dL Lipase 88 (23-300) U/L Urine Color Urine Appearance (Clear) Urine pH (5.0-8.0) Ur Specific [place] (1.001-1.035) Urine Protein (Negative) Urine Glucose (UA) (Negative) Urine Ketones (Negative) Urine Blood (Negative) Urine Nitrite (Negative) Urine Bilirubin (Negative) Urine Urobilinogen (<2.0) mg/dL Ur Leukocyte Esterase (Negative) Urine RBC (0-5) /hpf Urine WBC (0-5) /hpf Ur Squamous Epith Cells (0-4) /hpf Urine Bacteria (None) /hpf Urine Mucus (None) /hpf Acetone, Qual Negative (Negative) 01/05/22 01/05/22 01/05/22 Range/Units 06:06 06:15 08:09 WBC (3.8-10.6) k/uL RBC (3.80-5.40) m/uL Hgb (11.4-16.0) gm/dL Hct (34.0-46.0) % MCV (80.0-100.0) fL MCH (25.0-35.0) pg MCHC (31.0-37.0) g/dL RDW (11.5-15.5) % Plt Count (150-450) k/uL MPV Neutrophils % % Lymphocytes % % Monocytes % % Eosinophils % % Basophils % % Neutrophils # (1.3-7.7) k/uL Lymphocytes # (1.0-4.8) k/uL Monocytes # (0-1.0) k/uL Eosinophils # (0-0.7) k/uL Basophils # (0-0.2) k/uL Sodium (137-145) mmol/L Potassium (3.5-5.1) mmol/L Chloride (98-107) mmol/L Carbon Dioxide (22-30) mmol/L Anion Gap mmol/L BUN (7-17) mg/dL Creatinine (0.52-1.04) mg/dL Est GFR (CKD-EPI)AfAm (>60 ml/min/1.73 sqM) Est GFR (CKD-EPI)NonAf (>60 ml/min/1.73 sqM) Glucose (74-99) mg/dL POC Glucose (mg/dL) 210 H 127 H (70-110) mg/dL POC Glu Window Trimmer ID Uvaldo Gandara Kelly Plasma Lactic Acid Olu (0.7-2.0) mmol/L Calcium (8.4-10.2) mg/dL Total Bilirubin (0.2-1.3) mg/dL AST (14-36) U/L ALT (4-34) U/L Alkaline Phosphatase (38-126) U/L Total Protein (6.3-8.2) g/dL Albumin (3.5-5.0) g/dL Lipase (23-300) U/L Urine Color Light Yellow Urine Appearance Clear (Clear) Urine pH 5.0 (5.0-8.0) Ur Specific [place] 1.029 (1.001-1.035) Urine Protein Negative (Negative) Urine Glucose (UA) 4+ H (Negative) Urine Ketones Negative (Negative) Urine Blood Small H (Negative) Urine Nitrite Negative (Negative) Urine Bilirubin Negative (Negative) Urine Urobilinogen <2.0 (<2.0) mg/dL Ur Leukocyte Esterase Small H (Negative) Urine RBC 4 (0-5) /hpf Urine WBC 10 H (0-5) /hpf Ur Squamous Epith Cells 3 (0-4) /hpf Urine Bacteria Occasional H (None) /hpf Urine Mucus Rare H (None) /hpf Acetone, Qual (Negative) Disposition Clinical Impression: Nausea & vomiting, Hyperglycemia Disposition: HOME SELF-CARE Condition: Stable Instructions (If sedation given, give patient instructions): Acute Nausea and Vomiting (ED) Additional Instructions: Please return to the Emergency Department if symptoms worsen or any other concerns. Prescriptions: Ondansetron Odt [Zofran Odt] 4 mg PO Q8HR PRN #10 tab PRN Reason: Nausea Is patient prescribed a controlled substance at d/c from ED?: No Referrals: Genevieve Ware NPC [Nurse Practitioner] - 1-2 days Time of Disposition: 08:14
[2022-01-05 06:47] LABS: Basophils % (A) 1 %; Eosinophils # (A) 0.4 k/uL (0-0.7); Eosinophils % (A) 7 %; HCT 42.8 % (34.0-46.0); HGB 14.4 gm/dL (11.4-16.0); Lymphocytes # (A) 1.9 k/uL (1.0-4.8); Lymphocytes % (A) 33 %; MCH 28.6 pg (25.0-35.0); MCHC 33.6 g/dL (31.0-37.0); MCV 85.1 fL (80.0-100.0); Mean Platelet Volume 7.7; Monocytes # (A) 0.3 k/uL (0-1.0); Monocytes % (A) 5 %; Neutrophils # (A) 3.1 k/uL (1.3-7.7); Neutrophils % (A) 53 %; Platelet Count 309 k/uL (150-450); RBC 5.03 m/uL (3.80-5.40); RDW 12.8 % (11.5-15.5); WBC 5.8 k/uL (3.8-10.6)
[2022-01-05 06:49] LABS: Appearance,Urine Clear (Clear); Bacteria,Urine Occasional /hpf; Bilirubin,Urine Negative (Negative); Blood,Urine Small (Negative); Color,Urine Light Yellow; Glucose,Urine (UA) 4+ (Negative); Ketones,Urine Negative (Negative); Leukocyte Esterase,Urine Small (Negative); Mucus,Urine Rare /hpf; Nitrite,Urine Negative (Negative); Protein,Urine Negative (Negative); RBC,Urine 4 /hpf (0-5); Specific Gravity,Urine 1.029 (1.001-1.035); Squamous Epithelial Cell,Urine 3 /hpf (0-4); Urobilinogen,Urine <2.0 mg/dL (<2.0); WBC,Urine 10 /hpf (0-5)
[2022-01-05 07:00] LABS: ALT 27 U/L (4-34); African American GFR (CKD) >90 (>60 ml/min/1.73 sqM); Anion Gap 13 mmol/L; Blood Urea Nitrogen 17 mg/dL (7-17); Calcium 9.3 mg/dL (8.4-10.2); Carbon Dioxide 21 mmol/L (22-30); Chloride 104 mmol/L (98-107); Glucose 299 mg/dL (74-99); Lipase 88 U/L (23-300); Non-African American GFR(CKD) >90 (>60 ml/min/1.73 sqM); Sodium 138 mmol/L (137-145); Total Bilirubin 0.8 mg/dL (0.2-1.3)
[2022-01-05 07:02] LABS: AST 40 U/L (14-36); Albumin 4.2 g/dL (3.5-5.0); Alkaline Phosphatase 55 U/L (38-126); Potassium 4.6 mmol/L (3.5-5.1); Total Protein 7.1 g/dL (6.3-8.2)
[2022-01-05 08:11] LABS: Glucose,Whole Blood 127 mg/dL (70-110)
[2022-01-05 08:29] VITALS: BP 128/85; PULSE 89; RESP 18; TEMP 98.2
== END 2022-01-05 08:20 | disposition home or self-care (01) ==
LOC: EC 05:59
DX: R11.2 Nausea with vomiting, unspecified (principal); E11.65 Type 2 diabetes mellitus with hyperglycemia; I10 Essential (primary) hypertension; F17.200 Nicotine dependence, unspecified, uncomplicated; F12.90 Cannabis use, unspecified, uncomplicated; Z88.0 Allergy status to penicillin; Z88.8 Allergy status to other drugs, medicaments and biological substances; Z88.2 Allergy status to sulfonamides
CPT/HCPCS: 36415; 80053; 82009; 83605; 83690; 85025; 81001; 87086; 87077; 87186; 99284; 96374; 96361 ×2; J2405

== ENCOUNTER → 2022-01-10 | Outpatient (CLI) | payer OTHER ==
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
== END ==
LOC: SLEEP 13:22
PROVIDERS: ATTEND Internal Medicine Critical Care Medicine
DX: G47.33 Obstructive sleep apnea (adult) (pediatric) (principal)
CPT/HCPCS: 99211

== ENCOUNTER 2023-08-16 23:06 | Emergency (ER) | payer OTHER ==
--- NOTE | 2023-08-16 23:43 | ED ---
General Adult HPI - General Chief complaint: Weakness Stated complaint: FAISAL chest pain Time Seen by Provider: 08/16/23 23:23 Source: patient Mode of arrival: wheelchair Limitations: no limitations - History of Present Illness Initial comments: This patient is a 28-year-old woman who presents to have evaluation for anxiety, feeling shaky, and feeling short of breath. Patient and her friend both give history. He states that this came on when she had an argument with her roommate. The patient took Xanax but is not really feeling much better. She de nies pain. No focal weakness. -: hour(s) Severity scale (1-10): 0 Consistency: constant Improves with: none Worsens with: none Associated Symptoms: denies other symptoms Treatments Prior to Arrival: other (Xanax) - Related Data Home Medications Medication Instructions Recorded Confirmed Insulin Aspart Prot/Insuln Asp See Protocol SQ ACHS 07/22/21 07/22/21 [NovoLOG MIX 70-30 Flexpen] Metoprolol Succinate (ER) [Toprol 50 mg PO HS 07/22/21 07/22/21 Xl] Mirtazapine [Remeron] 15 mg PO HS 07/22/21 07/22/21 lamoTRIgine [LaMICtal] See Taper PO DIRECTED 07/22/21 07/22/21 lisinopriL [Zestril] 5 mg PO HS 07/22/21 07/22/21 Previous Rx's Medication Instructions Recorded Ondansetron Odt [Zofran Odt] 4 mg PO Q8HR PRN #10 tab 01/05/22 Metoclopramide [Reglan] 10 mg PO TID PRN #15 tab 05/21/22 Allergies Allergy/AdvReac Type Severity Reaction Status Date / Time sulfamethoxazole Allergy Rash/Hives Verified 08/16/23 23:17 [From Bactrim] trimethoprim [From Bactrim] Allergy Rash/Hives Verified 08/16/23 23:17 duloxetine [From Cymbalta] AdvReac Hallucinati Verified 08/16/23 23:17 ons fluoxetine [From Prozac] AdvReac Suicidal Verified 08/16/23 23:17 Thoughts sertraline [From Zoloft] AdvReac Hallucinati Verified 08/16/23 23:17 ons Review of Systems ROS Statement: Those systems with pertinent positive or pertinent negative responses have been documented in the HPI. ROS Other: All systems not noted in ROS Statement are negative. Constitutional: Denies: fever, chills, weakness Eyes: Denies: vision change Respiratory: Reports: dyspnea. Denies: cough Cardiovascular: Denies: chest pain, palpitations, edema, syncope Gastrointestinal: Denies: abdominal pain, nausea, vomiting, diarrhea Genitourinary: Denies: dysuria, hematuria Musculoskeletal: Denies: back pain Skin: Denies: rash Neurological: Denies: headache, weakness Psychiatric: Reports: anxiety. Denies: suicidal thoughts Past Medical History Past Medical History: Diabetes Mellitus, Hearing Disorder / Deafness, Hypertension Additional Past Medical History / Comment(s): Deafness in both ears, wearing a hearing aid, history of migraines, history of chronic anxiety/depression/PTSD, hypertension, previous history of DKA History of Any Multi-Drug Resistant Organisms: None Reported Past Surgical History: Ear Surgery Past Psychological History: Anxiety, Bipolar, Depression, PTSD Smoking Status: Current every day smoker, Vaper Past Alcohol Use History: None Reported Past Drug Use History: Marijuana General Exam Limitations: no limitations General appearance: alert, in no apparent distress, anxious Head exam: Present: atraumatic, normocephalic Eye exam: Present: normal appearance. Absent: scleral icterus, conjunctival injection Neck exam: Present: normal inspection Respiratory exam: Present: normal lung sounds bilaterally. Absent: respiratory distress, wheezes, rales, rhonchi, stridor, accessory muscle use Cardiovascular Exam: Present: regular rate, normal rhythm, normal heart sounds. Absent: systolic murmur, diastolic murmur, rubs, gallop GI/Abdominal exam: Present: soft. Absent: distended, tenderness, guarding, rebound, rigid, mass Extremities exam: Present: normal inspection, normal capillary refill. Absent: pedal edema, calf tenderness Back exam: Present: normal inspection. Absent: CVA tenderness (R), CVA tenderness (L) Neurological exam: Present: alert Skin exam: Present: warm, dry, intact, normal color. Absent: rash Course Vital Signs 08/16/23 08/16/23 08/17/23 23:14 23:17 03:12 Temperature 97.8 F 97.7 F Pulse Rate 112 H 87 Respiratory 16 18 16 Rate Blood Pressure 141/95 134/91 O2 Sat by Pulse 98 99 Oximetry Medical Decision Making - Medical Decision Making The patient had chest x-ray that I interpreted as negative for acute infiltrate, pneumothorax, congestive heart failure Was pt. sent in by a medical professional or institution (AMARI Jerez, MRI TECHNICIAN, urgent care, hospital, or detention...) When possible be specific @ -[No] Did you speak to anyone other than the patient for history (EMS, parent, family, police, friend...)? What history was obtained from this source @ -[No] Did you review nursing and triage notes (agree or disagree)? Why? @ -[I reviewed and agree with nursing and triage notes] Were old charts reviewed (outside hosp., previous admission, EMS record, old EKG, old radiological studies, urgent care reports/EKG's, detention records)? Report findings @ -[No old charts were reviewed] Differential Diagnosis (chest pain, altered mental status, abdominal pain women, abdominal pain men, vaginal bleeding, weakness, fever, dyspnea, syncope, headache, dizziness, GI bleed, back pain, seizure, CVA, palpatations, mental health, musculoskeletal)? @ -[Differential Mental Health Depression, anxiety, bipolar, psychosis, schizophrenia, borderline personality, situational depression, adjustment disorder, behavioral disorder, brain tumor, malingering, substance abuse, encephalopathy, medication reaction, dementia, hypothyroidism, degenerative neurologic disorder, lupus.... This is not meant to be all-inclusive list EKG interpreted by me (3pts min.). @ -[I interpreted as above X-rays interpreted by me (1pt min.). @ -[I interpreted as above CT interpreted by me (1pt min.). @ -[None done] U/S interpreted by me (1pt. min.). @ -[None done] What testing was considered but not performed or refused? (CT, X-rays, U/S, labs)? Why? @ -[None] What meds were considered but not given or refused? Why? @ -[None] Did you discuss the management of the patient with other professionals (professionals i.e. AMARI Jerez, MRI TECHNICIAN, lab, RT, psych nurse, social work instructor, benzene washer, t eacher, small business banking officer, disease case manager)? Give summary @ -[No] Was smoking cessation discussed for >3mins.? @ -[No] Was critical care preformed (if so, how long)? @ -[No] Were there social determinants of health that impacted care today? How? (Homelessness, low income, unemployed, alcoholism, drug addiction, transportation, low edu. Level, literacy, decrease access to med. care, [place] [facility], rehab)? @ -[No] Was there de-escalation of care discussed even if they declined (Discuss DNR or withdrawal of care, Hospice)? DNR status @ -[No] What co-morbidities impacted this encounter? (DM, HTN, Smoking, COPD, CAD, Cancer, CVA, ARF, Chemo, Hep., AIDS, mental health diagnosis, sleep apnea, morbid obesity)? @ -[None] Was patient admitted / discharged? Hospital course, mention meds given and route, prescriptions, significant lab abnormalities, going to OR and other pertinent info. @ -[hospital course] Undiagnosed new problem with uncertain prognosis? @ -[No] Drug Therapy requiring intensive monitoring for toxicity (Heparin, Nitro, Insulin, Cardizem)? @ -[No] Were any procedures done? @ -[No] Diagnosis/symptom? @ -[Due to anxiety Acute, or Chronic, or Acute on Chronic? @ -Acute Uncomplicated (without systemic symptoms) or Complicated (systemic symptoms)? @ -[Uncomplicated Side effects of treatment? @ -[No] Exacerbation, Progression, or Severe Exacerbation? @ -[No] Poses a threat to life or bodily function? How? (Chest pain, USA, CT, pneumonia, PE, COPD, DKA, ARF, appy, cholecystitis, CVA, Diverticulitis, Homicidal, Suicidal, threat to staff... and all critical care pts) @ -[No] - Lab Data Result diagrams: 08/17/23 01:00 08/17/23 01:00 Lab Results 08/17/23 08/17/23 08/17/23 Range/Units 01:00 01:00 01:00 WBC 8.3 (3.8-10.6) k/uL RBC 5.07 (3.80-5.40) m/uL Hgb 14.4 (11.4-16.0) gm/dL Hct 43.3 (34.0-46.0) % MCV 85.5 (80.0-100.0) fL MCH 28.4 (25.0-35.0) pg MCHC 33.2 (31.0-37.0) g/dL RDW 13.0 (11.5-15.5) % Plt Count 302 (150-450) k/uL MPV 7.4 Neutrophils % 58 % Lymphocytes % 32 % Monocytes % 7 % Eosinophils % 1 % Basophils % 0 % Neutrophils # 4.8 (1.3-7.7) k/uL Lymphocytes # 2.7 (1.0-4.8) k/uL Monocytes # 0.6 (0-1.0) k/uL Eosinophils # 0.1 (0-0.7) k/uL Basophils # 0.0 (0-0.2) k/uL PT 10.7 (10.0-12.5) sec INR 1.0 (<1.2) APTT 23.0 (22.0-30.0) sec Sodium 140 (137-145) mmol/L Potassium 4.0 (3.5-5.1) mmol/L Chloride 109 H (98-107) mmol/L Carbon Dioxide 26 (22-30) mmol/L Anion Gap 5 mmol/L BUN 12 (7-17) mg/dL Creatinine 0.59 (0.52-1.04) mg/dL Est GFR (CKD-EPI)AfAm >90 (>60 ml/min/1.73 sqM) Est GFR (CKD-EPI)NonAf >90 (>60 ml/min/1.73 sqM) Glucose 108 H (74-99) mg/dL Plasma Lactic Acid Olu (0.7-2.0) mmol/L Calcium 9.6 (8.4-10.2) mg/dL Total Bilirubin 0.8 (0.2-1.3) mg/dL AST 24 (14-36) U/L ALT 24 (4-34) U/L Alkaline Phosphatase 71 (38-126) U/L Troponin I (0.000-0.034) ng/mL Total Protein 7.2 (6.3-8.2) g/dL Albumin 4.4 (3.5-5.0) g/dL Urine HCG, Qual (Not Detectd) 08/17/23 08/17/23 08/17/23 Range/Units 01:00 01:00 01:20 WBC (3.8-10.6) k/uL RBC (3.80-5.40) m/uL Hgb (11.4-16.0) gm/dL Hct (34.0-46.0) % MCV (80.0-100.0) fL MCH (25.0-35.0) pg MCHC (31.0-37.0) g/dL RDW (11.5-15.5) % Plt Count (150-450) k/uL MPV Neutrophils % % Lymphocytes % % Monocytes % % Eosinophils % % Basophils % % Neutrophils # (1.3-7.7) k/uL Lymphocytes # (1.0-4.8) k/uL Monocytes # (0-1.0) k/uL Eosinophils # (0-0.7) k/uL Basophils # (0-0.2) k/uL PT (10.0-12.5) sec INR (<1.2) APTT (22.0-30.0) sec Sodium (137-145) mmol/L Potassium (3.5-5.1) mmol/L Chloride (98-107) mmol/L Carbon Dioxide (22-30) mmol/L Anion Gap mmol/L BUN (7-17) mg/dL Creatinine (0.52-1.04) mg/dL Est GFR (CKD-EPI)AfAm (>60 ml/min/1.73 sqM) Est GFR (CKD-EPI)NonAf (>60 ml/min/1.73 sqM) Glucose (74-99) mg/dL Plasma Lactic Acid Olu 0.8 (0.7-2.0) mmol/L Calcium (8.4-10.2) mg/dL Total Bilirubin (0.2-1.3) mg/dL AST (14-36) U/L ALT (4-34) U/L Alkaline Phosphatase (38-126) U/L Troponin I <0.012 (0.000-0.034) ng/mL Total Protein (6.3-8.2) g/dL Albumin (3.5-5.0) g/dL Urine HCG, Qual Not Detected (Not Detectd) Disposition Clinical Impression: Anxiety Disposition: HOME SELF-CARE Condition: Good Instructions (If sedation given, give patient instructions): Anxiety (ED) Is patient prescribed a controlled substance at d/c from ED?: No Referrals: Chuck Dotson MD [Primary Care Provider] - 1-2 days
[2023-08-17 01:18] LABS: Basophils % (A) 0 %; Eosinophils # (A) 0.1 k/uL (0-0.7); Eosinophils % (A) 1 %; HCT 43.3 % (34.0-46.0); HGB 14.4 gm/dL (11.4-16.0); Lymphocytes # (A) 2.7 k/uL (1.0-4.8); Lymphocytes % (A) 32 %; MCH 28.4 pg (25.0-35.0); MCHC 33.2 g/dL (31.0-37.0); MCV 85.5 fL (80.0-100.0); Mean Platelet Volume 7.4; Monocytes # (A) 0.6 k/uL (0-1.0); Monocytes % (A) 7 %; Neutrophils # (A) 4.8 k/uL (1.3-7.7); Neutrophils % (A) 58 %; Platelet Count 302 k/uL (150-450); RBC 5.07 m/uL (3.80-5.40); WBC 8.3 k/uL (3.8-10.6)
[2023-08-17 01:27] LABS: ALT 24 U/L (4-34); AST 24 U/L (14-36); African American GFR (CKD) >90 (>60 ml/min/1.73 sqM); Albumin 4.4 g/dL (3.5-5.0); Alkaline Phosphatase 71 U/L (38-126); Anion Gap 5 mmol/L; Blood Urea Nitrogen 12 mg/dL (7-17); Calcium 9.6 mg/dL (8.4-10.2); Carbon Dioxide 26 mmol/L (22-30); Chloride 109 mmol/L (98-107); Glucose 108 mg/dL (74-99); Non-African American GFR(CKD) >90 (>60 ml/min/1.73 sqM); Prothrombin Time 10.7 sec (10.0-12.5); Sodium 140 mmol/L (137-145); Total Bilirubin 0.8 mg/dL (0.2-1.3); Total Protein 7.2 g/dL (6.3-8.2)
--- NOTE | 2023-08-17 02:06 | XR ---
EXAM: XR Chest, 2 Views CLINICAL HISTORY: ITS.REASON XR Reason: Weakness TECHNIQUE: Frontal and lateral views of the chest. COMPARISON: No relevant prior studies available. FINDINGS: Lungs: Unremarkable. No consolidation. Pleural space: Unremarkable. No pneumothorax. Heart: Unremarkable. No cardiomegaly. Mediastinum: Unremarkable. Normal mediastinal contour. Bones/joints: Unremarkable. No acute fracture. IMPRESSION: Normal chest x-rays.
[2023-08-17] MEDS: SODIUM CHLORIDE 0.9% 500 ML 500 ML IV STA (02:28)
[2023-08-17 04:10] VITALS: BP 134/91; PULSE 87; RESP 16; TEMP 97.7
== END 2023-08-17 03:21 | disposition home or self-care (01) ==
LOC: EC 23:06
DX: F41.9 Anxiety disorder, unspecified (principal); R00.0 Tachycardia, unspecified; F17.290 Nicotine dependence, other tobacco product, uncomplicated; F12.90 Cannabis use, unspecified, uncomplicated; Z88.2 Allergy status to sulfonamides; Z88.1 Allergy status to other antibiotic agents; Z88.8 Allergy status to other drugs, medicaments and biological substances
CPT/HCPCS: 36415; 71046; 80053; 81025; 83605; 84484; 85025; 85610; 85730; 93005; 96360; 99285

== ENCOUNTER → 2023-09-05 | Outpatient (CLI) | payer OTHER | END | disposition home or self-care (01) | LOC: LABWHC1 10:13 | PROVIDERS: ATTEND Internal Medicine Cardiovascular Disease | DX: I10 Essential (primary) hypertension (principal) | CPT/HCPCS: 36415; 82088; 82533; 83835; 84244 ==

== ENCOUNTER → 2024-10-08 | Outpatient (CLI) | payer OTHER ==
--- NOTE | 2024-10-08 09:43 | US ---
EXAMINATION TYPE: US kidneys/renal and bladder DATE OF EXAM: 10/08/2024 COMPARISON: NONE CLINICAL INDICATION: Female, 29 years old with history of N20.1 CALCULUS OF KIDNEY; patient states kn own stones, no pain at time of exam, no hematuria, pt did not know prep for bladder TECHNIQUE: Grayscale imaging of the bilateral kidneys and urinary bladder: FINDINGS: EXAM MEASUREMENTS: Right Kidney: 11.3 x 3.7 x 5.2 cm Left Kidney: 10.2 x 4.2 x 6.0 cm Right Kidney: No hydronephrosis or masses seen Left Kidney: No hydronephrosis or masses seen Bladder: not distended, nondiagnostic for bladder evaluation. There is no evidence for hydronephrosis at this point in time. No echogenic foci or shadowing foci a re seen. No masses are identified. The urinary bladder is anechoic. IMPRESSION: 1. Unremarkable renal ultrasound. [facility], Workstation: [facility], 10/08/2024 9:41 AM
== END | disposition home or self-care (01) ==
LOC: RADUSWWP 08:52
PROVIDERS: ATTEND Family Medicine
DX: N20.1 Calculus of ureter (principal)
CPT/HCPCS: 76770